=== PATIENT | female | born 1985 ===

== ENCOUNTER 2017-04-28 21:46 | Emergency (ER) | payer MEDICAID ==
[~2017-04-28] VITALS: Ht 160 cm; Wt 57.0 kg
[2017-04-28 21:50] VITALS: Ht 160 cm; Wt 57.0 kg
--- NOTE | 2017-04-28 22:52 | ERD ---
ER Documentation Chief Complaint Date/Time DATE: 04/28/17 TIME: 22:40 Chief Complaint 11 wks , vomotong multiple times today HPI 31-year-old female presents emergency department for pelvic pain, lower back pain, vomiting. Stated that she vomited 4-5 times with nonbilious and nonbloody emesis in the past 24 hours. Describes her pelvic pain and lower back pain is crampy, constant, and regular. LMP: 02/11/2017. SAEED 11/18/2017. A0. She does not know her blood type. Her last OB visit was back in March. Denies headache, dizziness, blurry vision, neck pain, shoulder pain, chest pain , constipation, diarrhea, trauma, injury, falls, urinary symptoms, vaginal bleeding, vaginal discharge, recent exposure to any illness, recent antibiotic use in the last 3 months, recent travel, fever, chills. No known drug allergies. No past medical history. No surgeries. Medication: vitamins. Social: Works as a auditor/quality. Denies smoking, use of alcohol, use of illegal drugs. ROS All systems reviewed and are negative except as per history of present illness. Medications Home Meds Active Scripts Metoclopramide* (Reglan*) 10 Mg Tablet, 10 MG PO Q6 Y for NAUSEA AND/OR VOMITING , #20 TAB Prov:BUSHRA KRAUSE 04/29/17 Doxylamine/Pyridoxine Hcl (ZARINA FAUSTIN 10-10 MG TABLET) 1 Each Tablet.dr, 1 TAB PO TID Y for [place]/vomiting in , #10 TAB Prov:BUSHRA KRAUSE 04/29/17 Multivit/Min/Fol Ac/Iron/Pren* ( S*) 1 Tab Tab, 1 TAB PO DAILY, #30 TAB Prov:BUSHRA KRAUSE 04/29/17 Acetaminophen* (Tylenol*) 325 Mg Tablet, 2 TAB PO Q6 Y for PAIN AND OR ELEVATED TEMP, #20 TAB Prov:BUSHRA KRAUSE 04/29/17 Cephalexin* (Keflex*) 500 Mg Capsule, 500 MG PO QID for 5 Days, CAP Prov:PASILABUSHRA CORREA 04/29/17 Allergies Allergies: Coded Allergies: No Known Allergy (Unverified , 04/28/17) PMhx/Soc Medical and Surgical Hx: pt denies Medical Hx, pt denies Surgical Hx Hx Alcohol Use: No Hx Substance Use: No Hx Tobacco Use: No Smoking Status: Never smoker Physical Exam Vitals Vital Signs Date Time Temp Pulse Resp B/P Pulse Ox O2 Delivery O2 Flow Rate FiO2 04/28/17 21:50 97.1 82 20 111/54 99 Physical Exam Const: [] Head: Atraumatic Eyes: Normal Conjunctiva ENT: Normal External Ears, Nose and Mouth. Neck: Full range of motion..~ No meningismus. Resp: Clear to auscultation bilaterally Cardio: Regular rate and rhythm, no murmurs Abd: Soft, non tender, non distended. Normal bowel sounds. There is no right lower abdominal tenderness and light and deep palpation. Skin: No petechiae or rashes Back: No midline or flank tenderness. No CVA tenderness. Ext: No cyanosis, or edema Neur: Awake and alert Psych: Normal Mood and Affect Result Diagram: 04/28/17 2255 04/29/17 0015 Results 24 hrs Laboratory Tests Test 04/28/17 22:55 04/29/17 00:15 White Blood Count 10.410^3/ul Red Blood Count 3.8310^6/ul Hemoglobin 12.4g/dl Hematocrit 35.3% Mean Corpuscular Volume 92.2fl Mean Corpuscular Hemoglobin 32.4pg Mean Corpuscular Hemoglobin Concent 35.1g/dl Red Cell Distribution Width 12.7% Platelet Count 50218^3/UL Mean Platelet Volume 12.6fl Neutrophils % 72.2% Lymphocytes % 16.3% Monocytes % 7.5% Eosinophils % 3.2% Basophils % 0.4% Nucleated Red Blood Cells % 0.0/100WBC Neutrophils # 7.510^3/ul Lymphocytes # 1.710^3/ul Monocytes # 0.810^3/ul Eosinophils # 0.310^3/ul Basophils # 0.010^3/ul Nucleated Red Blood Cells # 0.010^3/ul Urine Color YELLOW Urine Clarity SLIGHTLY CLOUDY Urine pH 7.0 Urine Specific [place] 1.019 Urine Ketones 1+mg/dL Urine Nitrite NEGATIVEmg/dL Urine Bilirubin NEGATIVEmg/dL Urine Urobilinogen 1+mg/dL Urine Leukocyte Esterase 2+Lavon/ul Urine Microscopic RBC 2/HPF Urine Microscopic WBC 2/HPF Urine Squamous Epithelial Cells MANY/HPF Urine Mucus FEW/HPF Urine Hemoglobin NEGATIVEmg/dL Urine Glucose NEGATIVEmg/dL Urine Total Protein NEGATIVEmg/dl Amylase Level 95U/L Lipase 84U/L Beta HCG, Quantitative 544012.0mIU/ml Sodium Level 134mmol/L Potassium Level 3.8mmol/L Chloride Level 104mmol/L Carbon Dioxide Level 25mmol/L Anion Gap 9 Blood Urea Nitrogen 6mg/dl Creatinine 0.54mg/dl Glucose Level 84mg/dl Calcium Level 9.6mg/dl Total Bilirubin 0.4mg/dl Direct Bilirubin 0.00mg/dl Indirect Bilirubin 0.4mg/dl Aspartate Amino Transf (AST/SGOT) 17IU/L Alanine Aminotransferase (ALT/SGPT) 21IU/L Alkaline Phosphatase 67IU/L Total Protein 6.7g/dl Albumin 3.6g/dl Globulin 3.10g/dl Albumin/Globulin Ratio 1.16 Current Medications Medications (Trade) Dose Ordered Sig/Iliana Route PRN Reason Start Time Stop Time Status Last Admin Dose Admin Acetaminophen 500 mg 500 mg ONCE STAT PO 04/29/17 00:12 04/29/17 00:13 DC Sodium Chloride (NS) 1,000 ml @ 1,000 mls/hr Q1H ONCE IV 04/29/17 00:30 04/29/17 01:29 DC Metoclopramide HCl (Reglan) 10 mg ONCE ONCE IV 04/29/17 00:30 04/29/17 00:31 DC Procedures/MDM Examination: Please see physical examination. Disease process, medical treatment was explained to the patient and family member. They verbalized understanding and agreed with the diagnostic tests, medical treatment, and follow-up care. Radiology: OB ultrasound Impression: FINDINGS: A single intrauterine with a pole and yolk sac is identified. The crown-rump length equals 3.3 cm. The estimated gestational age equals 10 weeks 3 days by ultrasound criteria. Normal cardiac activity is identified with a HR of 163 bpm. There is a 1.8 cm subchorionic hemorrhage. There is no free fluid and there are no adnexal masses. Right ovary: 3.0 x 1.0 x 1.6 cm. Normal flow and echogenicity. Left ovary: 2.8 x 1.4 x 2.5 cm. Normal flow and echogenicity IMPRESSION: 1. Single viable intrauterine with an estimated gestational age of 10 weeks 3 days by ultrasound criteria and an estimated date of delivery of 06/2018. 2. Small subchorionic hemorrhage. Short interval follow-up is recommended. Blood works unremarkable: Reviewed. Beta hCG quantitative: 201,120.0. POC urine : Positive. Type and Rh: O Positive. Urinalysis: UTI. Treatment: IV insertion. Normal saline IV bolus. Reglan IV. Re-evaluation: Denies headache, dizziness, blurry vision, neck pain, shoulder pain, chest pain, back pain, abdominal pain, nausea, vomiting. No episode of emesis in the emergency department. Alert and oriented 4. Speaks full and clear sentences. Respirations even and unlabored. Lung sounds clear to auscultation. Active bowel sounds. There is no right upper/right lower/ epigastric/left upper/left lower abdominal tenderness and light and deep palpation. Negative on Rovsings sign. Negative [place] sign. No peritoneal signs. Ambulatory with steady gait. No neurovascular deficits. No neurological deficits. Consultation: None. Differential diagnosis: Ectopic versus abnormal versus hyperemesis gravidarum versus urinary tract infection versus abdominal pain in Medical decision m[age]-year-old female presents emergency department for pelvic pain, lower back pain, vomiting. Stated that she vomited 4-5 times with nonbilious and nonbloody emesis in the past 24 hours. Describes her pelvic pain and lower back pain is crampy, constant, and regular. LMP: 02/11/2017. SAEED 11/18/2017. A0. She does not know her blood type. Her last OB visit was back in March. Patient's complaint, patient's history about her complaint, my physical findings, diagnostic test results, my reevaluation after treatment are consistent with a final diagnosis of urinary tract infection and , abdominal pain and . Medications prescribed are the following: Keflex. Tylenol. Diclegis. Reglan. Patient and family member are made aware of the side effects and adverse reactions of the medications prescribed. Instructed on when to seek emergent and medical attention in case allergic/anaphylactic reactions or severe side effects and or adverse reactions to medications. Patient and family member verbalized understanding. Patient instructed Instructed to follow-up with his PCP in 24-48 hours. Follow-up with OB in the next 24-48 hours. Instructed to Call 911 for chest pain, shortness of breath. Advised to come back here in ED as soon as possible for severity of symptoms which includes but not limited to: any new symptoms; shortness of breath/difficulty of breathing; cardiovascular changes; severe gastrointestinal symptoms; signs and symptoms of bleeding and or infection; signs of compartment syndrome/neurovascular changes; neurological changes/deficits. Patient and family member verbalized understanding. Upon discharge, patient is alert and oriented x 4, speaks full and clear sentences, denies pain, has no neurological deficits, has no neurovascular deficits, difficulty of breathing. Breathing even and unlabored. Lung sounds are clear to auscultation. Not in distress. Appears comfortable. Ambulatory with steady gait. Appears satisfied with care provided here in ED. Departure Diagnosis: Primary Impression: Abdominal pain affecting Additional Impression: UTI in Condition: Stable Additional Instructions: Instructed to follow-up with his PCP in 24-48 hours. Follow-up with OB in the next 24-48 hours. Instructed to Call 911 for chest pain, shortness of breath. Advised to come back here in ED as soon as possible for severity of symptoms which includes but not limited to: any new symptoms; shortness of breath/difficulty of breathing; cardiovascular changes; severe gastrointestinal symptoms; signs and symptoms of bleeding and or infection; signs of compartment syndrome/neurovascular changes; neurological changes/deficits. Patient and family member verbalized understanding. BUSHRA KRAUSE Apr 28, 2017 22:51
[2017-04-28 23:32] LABS: BASOPHILS % 0.4 % (0.0-2.0); EOSINOPHILS # 0.3 10^3/ul (0.0-0.5); EOSINOPHILS % 3.2 % (0.0-7.0); HEMATOCRIT 35.3 % (37.0-47.0); HEMOGLOBIN 12.4 g/dl (12.0-16.0); LYMPHOCYTES # 1.7 10^3/ul (0.8-2.9); LYMPHOCYTES % 16.3 % (15.0-51.0); MEAN CORPUSCULAR HEMOGLOBIN 32.4 pg (29.0-33.0); MEAN CORPUSCULAR HGB CONC 35.1 g/dl (32.0-37.0); MEAN CORPUSCULAR VOLUME 92.2 fl (82.0-101.0); MEAN PLATELET VOLUME 12.6 fl (7.4-10.4); MONOCYTE # 0.8 10^3/ul (0.3-0.9); MONOCYTES % 7.5 % (0.0-11.0); NEUTROPHIL # 7.5 10^3/ul (1.6-7.5); NEUTROPHILS % 72.2 % (39.0-77.0); PLATELET COUNT 147 10^3/UL (140-415); RED BLOOD COUNT 3.83 10^6/ul (4.20-5.40); RED CELL DISTRIBUTION WIDTH 12.7 % (11.5-14.5); WHITE BLOOD COUNT 10.4 10^3/ul (4.8-10.8)
--- NOTE | 2017-04-28 23:35 | RADRPT ---
PROCEDURE: US OB. CLINICAL INDICATION: Vaginal bleeding. TECHNIQUE: Transabdominal sonographic evaluation of the pelvis using bacon scale and color Doppler imaging was performed. COMPARISON: None available. FINDINGS: A single intrauterine with a pole and yolk sac is identified. The crown-rump length equals 3.3 cm. The estimated gestational age equals 10 weeks 3 days by ultrasound criteria. Normal cardiac activity is identified with a HR of 163 bpm. There is a 1.8 cm subchorionic hemorrhage. There is no free fluid and there are no adnexal masses. Right ovary: 3.0 x 1.0 x 1.6 cm. Normal flow and echogenicity. Left ovary: 2.8 x 1.4 x 2.5 cm. Normal flow and echogenicity IMPRESSION: 1. Single viable intrauterine with an estimated gestational age of 10 weeks 3 days by ult rasound criteria and an estimated date of delivery of 11/21/2017. 2. Small subchorionic hemorrhage. Short interval follow-up is recommended. RPTAT: HLBP .Alex Reed MD, Date Time Electronically viewed and signed by .Alex Reed MD, on 04/28/2017 23:35 .P/
[2017-04-28 23:47] LABS: ADD UMIC YES; UR ASCORBIC ACID NEGATIVE (NEGATIVE); UR BILIRUBIN (Dip) NEGATIVE (NEGATIVE); UR BLOOD (Dip) NEGATIVE (NEGATIVE); UR CLARITY SLIGHTLY CLOUDY (CLEAR); UR COLOR YELLOW (YELLOW); UR GLUCOSE (Dip) NEGATIVE (NEGATIVE); UR KETONES (Dip) 1+ mg/dL (NEGATIVE); UR LEUKOCYTE ESTERASE (Dip) 2+ Leu/ul (NEGATIVE); UR MUCUS FEW /HPF (NONE SEEN); UR NITRITE (Dip) NEGATIVE (NEGATIVE); UR RBC 2 /HPF (0-5); UR SPECIFIC GRAVITY (Dip) 1.019 (1.003-1.030); UR SQUAMOUS EPITHELIAL CELL MANY /HPF (FEW); UR TOTAL PROTEIN (Dip) NEGATIVE (NEGATIVE); UR UROBILINOGEN (Dip) 1+ mg/dL (NEGATIVE)
[2017-04-28 23:50] LABS: AMYLASE 95 U/L (11-123)
[2017-04-29] MEDS ORDERED: ACETAMINOPHEN 500 MG TAB PO STA (00:12)
[2017-04-29] MEDS ORDERED: SOD CHLORIDE 0.9% 1,000 ML IV ONE (00:30)
[2017-04-29] MEDS ORDERED: METOCLOPRAMIDE 10 MG INJ IV ONE (00:30)
[2017-04-29 00:41] LABS: ALBUMIN 3.6 g/dl (3.3-4.9); ALBUMIN/GLOBULIN RATIO 1.16; BILIRUBIN,INDIRECT 0.4 mg/dl (0-1.1); BILIRUBIN,TOTAL 0.4 mg/dl (0.2-1.3); CALCIUM 9.6 mg/dl (8.4-10.2); CREATININE 0.54 mg/dl (0.44-1.00); POTASSIUM 3.8 mmol/L (3.5-5.1); TOTAL PROTEIN 6.7 g/dl (6.1-8.1)
[2017-04-29] MEDS ORDERED: CEPH-443 PO (01:42)
[2017-04-29] MEDS ORDERED: ACET325T33 PO (01:43)
[2017-04-29] MEDS ORDERED: PRENAT PO (01:43)
[2017-04-29] MEDS ORDERED: DOXY1TAB3 PO (01:45)
[2017-04-29] MEDS ORDERED: METO10TA92 PO (01:49)
[2017-04-29 03:24] VITALS: BP 115/62; PULSE 72; RESP 16; TEMP 98.3
== END 2017-04-29 03:28 | disposition home or self-care (01) ==
LOC: FTE 21:46
DX: O26.891 Other specified pregnancy related conditions, first trimester (principal); R10.2 Pelvic and perineal pain; O23.41 Unspecified infection of urinary tract in pregnancy, first trimester; Z3A.10 10 weeks gestation of pregnancy
CPT/HCPCS: 36415; 76801; 80053; 81001; 82150; 83690; 84702; 85025; 86900; 86901; 87086; 96361; 96374; J2765; J7030; Z7502; Z7610

== ENCOUNTER 2017-06-27 10:39 | Inpatient (IN) | payer MEDICAID ==
[~2017-06-27] VITALS: Ht 157.5 cm; Wt 57.9 kg
[~2017-06-27 10:39] MED LIST: ACET325T33 PO; CEPH-443 PO; DOXY1TAB3 PO; METO10TA92 PO; PRENAT PO
[2017-06-27] MEDS ORDERED: ACETAMINOPHEN 500 MG TAB PO STA (12:53)
--- NOTE | 2017-06-27 13:00 | ERD ---
ER Documentation Chief Complaint Chief Complaint VAGINAL BLEEDING WITH CRAMPING 19WKS HPI 31-year-old female presents emergency department for vaginal bleeding with pelvic cramping since last night. LMP: 01/12/2017. SAEED 11/18/2017. A0. Denies headache, dizziness, blurred vision, neck pain, shoulder pain, chest pain , back pain, abdominal pain, nausea, vomiting, loss of bowel bladder control, vaginal discharge, fever, chills, difficulty walking, trauma, injury, falls, numbness or tingling sensation. No known drug allergies. No past medical history. No surgical history. Medication: vitamins. Social: Denies smoking, use of alcoholic beverages, use of illegal drugs. ROS All systems reviewed and are negative except as per history of present illness. Medications Home Meds Active Scripts Metoclopramide* (Reglan*) 10 Mg Tablet, 10 MG PO Q6 Y for NAUSEA AND/OR VOMITING , #20 TAB Prov:NELIDAKATELYNSUJEY F 04/29/17 Doxylamine/Pyridoxine Hcl (ZARINA FAUSTIN 10-10 MG TABLET) 1 Each Tablet.dr, 1 TAB PO TID Y for [place]/vomiting in , #10 TAB Prov:PORFIRIOABIMAELBUSHRA F 04/29/17 Multivit/Min/Fol Ac/Iron/Pren* ( S*) 1 Tab Tab, 1 TAB PO DAILY, #30 TAB Prov:EDUARDOSUNNYKATELYNSUJEY F 04/29/17 Acetaminophen* (Tylenol*) 325 Mg Tablet, 2 TAB PO Q6 Y for PAIN AND OR ELEVATED TEMP, #20 TAB Prov:PORFIRIOBUSHRA VARGHESE F 04/29/17 Cephalexin* (Keflex*) 500 Mg Capsule, 500 MG PO QID for 5 Days, CAP Prov:PORFIRIOILABANKATELYNSUJEY F 04/29/17 Allergies Allergies: Coded Allergies: No Known Allergy (Unverified , 04/28/17) PMhx/Soc Medical and Surgical Hx: pt denies Medical Hx, pt denies Surgical Hx Hx Alcohol Use: No Hx Substance Use: No Hx Tobacco Use: No Smoking Status: Never smoker Physical Exam Vitals Vital Signs Date Time Temp Pulse Resp B/P Pulse Ox O2 Delivery O2 Flow Rate FiO2 06/27/17 10:45 97.0 87 16 103/55 99 Physical Exam Const: [] Head: Atraumatic Eyes: Normal Conjunctiva ENT: Normal External Ears, Nose and Mouth. Neck: Full range of motion..~ No meningismus. Resp: Clear to auscultation bilaterally Cardio: Regular rate and rhythm, no murmurs Abd: Soft, non tender, non distended. Normal bowel sounds Skin: No petechiae or rashes Back: No midline or flank tenderness Ext: No cyanosis, or edema Neur: Awake and alert Psych: Normal Mood and Affect Result Diagram: 06/27/17 1328 06/27/17 1328 Results 24 hrs Laboratory Tests Test 06/27/17 13:28 White Blood Count 11.110^3/ul Red Blood Count 3.6210^6/ul Hemoglobin 11.8g/dl Hematocrit 34.6% Mean Corpuscular Volume 95.6fl Mean Corpuscular Hemoglobin 32.6pg Mean Corpuscular Hemoglobin Concent 34.1g/dl Red Cell Distribution Width 13.5% Platelet Count 85326^3/UL Mean Platelet Volume 12.7fl Neutrophils % 73.6% Lymphocytes % 17.5% Monocytes % 6.6% Eosinophils % 1.4% Basophils % 0.2% Nucleated Red Blood Cells % 0.0/100WBC Neutrophils # 8.210^3/ul Lymphocytes # 1.910^3/ul Monocytes # 0.710^3/ul Eosinophils # 0.210^3/ul Basophils # 0.010^3/ul Nucleated Red Blood Cells # 0.010^3/ul Urine Color YELLOW Urine Clarity SLIGHTLY CLOUDY Urine pH 7.0 Urine Specific [place] 1.013 Urine Ketones NEGATIVEmg/dL Urine Nitrite NEGATIVEmg/dL Urine Bilirubin NEGATIVEmg/dL Urine Urobilinogen NEGATIVEmg/dL Urine Leukocyte Esterase 3+Lavon/ul Urine Microscopic RBC 1/HPF Urine Microscopic WBC 31/HPF Urine Squamous Epithelial Cells MODERATE/HPF Urine Bacteria FEW/HPF Urine Mucus FEW/HPF Urine Hemoglobin NEGATIVEmg/dL Urine Glucose NEGATIVEmg/dL Urine Total Protein NEGATIVEmg/dl Sodium Level 138mmol/L Potassium Level 4.0mmol/L Chloride Level 106mmol/L Carbon Dioxide Level 23mmol/L Anion Gap 13 Blood Urea Nitrogen 4mg/dl Creatinine 0.50mg/dl Glucose Level 76mg/dl Calcium Level 8.7mg/dl Total Bilirubin 0.3mg/dl Direct Bilirubin 0.00mg/dl Indirect Bilirubin 0.3mg/dl Aspartate Amino Transf (AST/SGOT) 19IU/L Alanine Aminotransferase (ALT/SGPT) 24IU/L Alkaline Phosphatase 63IU/L Total Protein 6.9g/dl Albumin 3.7g/dl Globulin 3.20g/dl Albumin/Globulin Ratio 1.15 Amylase Level 92U/L Lipase 70U/L Beta HCG, Quantitative 92399.0mIU/ml Current Medications Medications (Trade) Dose Ordered Sig/Iliana Route PRN Reason Start Time Stop Time Status Last Admin Dose Admin Acetaminophen 500 mg 500 mg ONCE STAT PO 06/27/17 12:53 06/27/17 12:57 DC 06/27/17 14:16 Sodium Chloride (NS) 1,000 ml @ 80 mls/hr [id number] IV 06/27/17 15:20 06/28/17 03:49 Ondansetron HCl (Zofran Inj) 4 mg BRIDGE ORDER PRN IV NAUSEA AND/OR VOMITING 06/27/17 15:30 06/28/17 15:29 Acetaminophen (Tylenol Tab) 650 mg ER BRIDGE PRN PO MILD PAIN/FEVER 06/27/17 15:30 06/28/17 15:29 Procedures/MDM 31-year-old female presents emergency department for vaginal bleeding with pelvic cramping since last night. LMP: 01/12/2017. SAEED 11/18/2017. A0. Denies headache, dizziness, blurred vision, neck pain, shoulder pain, chest pain , back pain, abdominal pain, nausea, vomiting, loss of bowel bladder control, vaginal discharge, fever, chills, difficulty walking, trauma, injury, falls, numbness or tingling sensation. No known drug allergies. No past medical history. No surgical history. Medication: vitamins. Social: Denies smoking, use of alcoholic beverages, use of illegal drugs. Physical exam: Lung sounds are clear to auscultation. No CVA tenderness. Patient agreed with the diagnostic test, treatment, plan of care. Blood works: Reviewed. Type and Rh: Beta hCG quantitative: Reviewed. OB ultrasound: Single viable intrauterine gestation of approximately 18 weeks and 4 days based on ultrasound measurements. Posterior placenta with small area of placental abruption. Differential diagnosis: Placenta previa versus abruptio placenta versus versus vaginal bleeding and Final diagnosis: Abruptio placenta Patient's OB is Dr. Didi Ortiz. Informed the director of community life that to page OB 14:40. Spoke with Dr. Didi Harris, agreed with medical decision making to admit the patient to N. is/OB with a final diagnosis of abruption placenta. She also stated to order Ancef 2 g IV every 8 hours, IV D5 LR at 1 35 cc an hour. Order bathroom privileges and bedrest. Blood works in the morning. She also stated to have the laborist do a pelvic exam when patient gets into the OB/[facility] unit. Called laborist and informed her to do a pelvic exam when the patient gets to the OB unit. Case was discussed with supervising physician, Dr. Sharon Blue who agreed with my medical decision making. Departure Diagnosis: Primary Impression: Abruptio placenta Condition: Stable BUSHRA KRAUSE Jun 27, 2017 13:00
[2017-06-27 13:39] LABS: BASOPHILS % 0.2 % (0.0-2.0); EOSINOPHILS # 0.2 10^3/ul (0.0-0.5); EOSINOPHILS % 1.4 % (0.0-7.0); HEMATOCRIT 34.6 % (37.0-47.0); HEMOGLOBIN 11.8 g/dl (12.0-16.0); LYMPHOCYTES # 1.9 10^3/ul (0.8-2.9); LYMPHOCYTES % 17.5 % (15.0-51.0); MEAN CORPUSCULAR HEMOGLOBIN 32.6 pg (29.0-33.0); MEAN CORPUSCULAR HGB CONC 34.1 g/dl (32.0-37.0); MEAN CORPUSCULAR VOLUME 95.6 fl (82.0-101.0); MEAN PLATELET VOLUME 12.7 fl (7.4-10.4); MONOCYTE # 0.7 10^3/ul (0.3-0.9); MONOCYTES % 6.6 % (0.0-11.0); NEUTROPHIL # 8.2 10^3/ul (1.6-7.5); NEUTROPHILS % 73.6 % (39.0-77.0); PLATELET COUNT 128 10^3/UL (140-415); RED BLOOD COUNT 3.62 10^6/ul (4.20-5.40); RED CELL DISTRIBUTION WIDTH 13.5 % (11.5-14.5); WHITE BLOOD COUNT 11.1 10^3/ul (4.8-10.8)
[2017-06-27 13:44] LABS: ADD UMIC YES; UR ASCORBIC ACID NEGATIVE (NEGATIVE); UR BACTERIA FEW /HPF (NONE SEEN); UR BILIRUBIN (Dip) NEGATIVE (NEGATIVE); UR BLOOD (Dip) NEGATIVE (NEGATIVE); UR CLARITY SLIGHTLY CLOUDY (CLEAR); UR COLOR YELLOW (YELLOW); UR GLUCOSE (Dip) NEGATIVE (NEGATIVE); UR KETONES (Dip) NEGATIVE (NEGATIVE); UR LEUKOCYTE ESTERASE (Dip) 3+ Leu/ul (NEGATIVE); UR MUCUS FEW /HPF (NONE SEEN); UR NITRITE (Dip) NEGATIVE (NEGATIVE); UR RBC 1 /HPF (0-5); UR SPECIFIC GRAVITY (Dip) 1.013 (1.003-1.030); UR SQUAMOUS EPITHELIAL CELL MODERATE /HPF (FEW); UR TOTAL PROTEIN (Dip) NEGATIVE (NEGATIVE); UR UROBILINOGEN (Dip) NEGATIVE (NEGATIVE)
--- NOTE | 2017-06-27 14:02 | RADRPT ---
PROCEDURE: US OB. CLINICAL INDICATION: Pelvic pain, vaginal bleeding TECHNIQUE: Multiple sonographic images of the pelvis and gravid uterus were obtained. The images were reviewed on a PACS workstation. COMPARISON: US PELVIS 04/28/2017 FINDINGS: There is a single viable intrauterine gestation. Cardiac activity is present with 134 beats per min algaaciq. There is a breech presentation. The placenta is posterior. There is no evidence of placenta previa. There is a small anechoic areas seen posterior to the placenta, measuring approximately 1.5 cm, suspicious for a small area of place ntal abruption. MVP = 3.2 cm. Measurements were made in order to determine age. The results are as follows: BPD =4.2 cm HC =15.7 cm AC =14.2 cm FL =2.5 cm Estimated gestational age of approximately 18 weeks and 4 days based on ultrasound measurements. Clinical age: 19 weeks and 3 days. The estimated date of delivery is 11/24/17, based on ultrasound measurements. The EFW = 249 g, 11%, based on LMP age. RPTAT: AA IMPRESSION: Single viable intrauterine gestation of approximately 18 weeks and 4 days based on ultrasound measu rements. Posterior placenta with a small area of placental abruption. .Rafael Concepcion MD, MD Date Time Electronically viewed and signed by .Rafael Concepcion MD, MD on 06/27/2017 14:02 .S/
[2017-06-27 14:05] LABS: ALBUMIN 3.7 g/dl (3.3-4.9); ALBUMIN/GLOBULIN RATIO 1.15; BILIRUBIN,INDIRECT 0.3 mg/dl (0-1.1); BILIRUBIN,TOTAL 0.3 mg/dl (0.2-1.3); CALCIUM 8.7 mg/dl (8.4-10.2); CREATININE 0.5 mg/dl (0.44-1.00); TOTAL PROTEIN 6.9 g/dl (6.1-8.1)
[2017-06-27] MEDS ORDERED: SOD CHLORIDE 0.9% 1,000 ML IV SCH (15:20)
[2017-06-27 15:30] VITALS: TEMP 98
[2017-06-27] MEDS ORDERED: CEFAZOLIN 2 GM/50 ML (PMX) 50 ML IVPB ONE (15:30)
[2017-06-27] MEDS ORDERED: ACETAMINOPHEN 325 MG TAB PO PRN (15:30)
[2017-06-27] MEDS ORDERED: ONDANSETRON 4 MG INJ IV PRN (15:30)
[2017-06-27] MEDS ORDERED: LIDOCAINE 1% (MDV) 20 ML INJ ONE (15:51)
[2017-06-27] MEDS: DEXTROSE 5%-LR 1,000 ML IV SCH (16:07)
--- NOTE | 2017-06-27 16:11 | EN ---
Date/Time of Note Date/Time of Note DATE: 06/27/17 TIME: 16:11 ER Progress Note I was notified by physician ice cream freezer assistant that this patient had been admitted. The patient was admitted for placental abruption. I have evaluated this patient and the patient is hemodynamically stable. Acid Blower has already been contacted by physician ice cream freezer assistant prior to my evaluation. I do agree with the disposition of admission at this time. Admission orders have been placed on the patient for the OB floor. SARA DOTSON DO Jun 27, 2017 16:11
[2017-06-27 20:14] VITALS: PULSE 73
[2017-06-27 23:29] VITALS: Ht 157.5 cm; Wt 57.9 kg
[2017-06-27 23:30] VITALS: BP 96/57; RESP 16
[2017-06-28] MEDS ORDERED: ACETAMINOPHEN 325 MG TAB PO PRN
[2017-06-28] MEDS: CEFAZOLIN 2 GM/50 ML (PMX) 50 ML IVPB SCH ×2 (00:51→09:01)
[2017-06-28] MEDS: DEXTROSE 5%-LR 1,000 ML IV SCH ×2 (02:44→10:40)
--- NOTE | 2017-06-28 06:27 | HP ---
Date/Time of Note Date/Time of Note DATE: 06/28/17 TIME: 06:23 OB - History Hx of Present Free Text/Dictation June 27, 2017 : 4 Para: 3 Care: Good Care Ultrasounds: No ultrasounds Abnormal Ultrasound Findings: 1/2 cm placenta abruption noted in ultrasound today when presented with a complaint of vaginal bleeding and pelvic pressure symptoms Other Concerns: 31-year-old with IUP at 19 weeks and 3 days presented with complaint of pelvic pressure symptoms and vaginal bleeding intermittently since last night. Bleeding stopped and recurred again today. She was noted to have 1/2 cm placenta abruption and ultrasound done today in the emergency room. Patient was admitted by primary attending to OB floor for observation. Patient currently denies any pelvic pain, leaking of fluid. Denies any other complaints. Past Family/Social History * Past Medical, Surgical, Family and Obstetric Histories reviewed from chart. OB Admission Exam Vital Signs Vital Signs Vital Signs Date Time Temp Pulse Resp B/P Pulse Ox O2 Delivery O2 Flow Rate FiO2 06/27/17 23:30 98.3 16 96/57 Room Air 06/27/17 20:14 73 98 Physical Exam HEENT: WNL Heart: Rhythm Normal Lungs: Clear Abdomen: WNL Extremities: Normal Cervical Dilatation: None (Speculum examination done. Cervix appears to be closed and long. Scant amount of blood in the vault. No leaking of fluid from the cervix noted.) Amniotic Fluid: Clear Heart Rate: 130's Contractions on Admission: None Last 72 hours Lab Results CBC & BMP 06/27/17 13:28 Liver Function Test 06/27/17 13:28 Alanine Aminotransferase (ALT/SGPT) 24 Albumin 3.7 Alkaline Phosphatase 63 Aspartate Amino Transf (AST/SGOT) 19 Direct Bilirubin 0.00 Total Protein 6.9 Magnesium Level Test 06/27/17 13:28 Magnesium Level 1.9 OB Assessment/Plan Other Assessment: IUP at 19 weeks and 3 days Vaginal bleeding and cramping Ultrasound finding consistent with placental abruption, 1 and half centimeter blood clots noted in ultrasound examination Rh+ is previable Patient will be kept for observation per primary OB request Will be seen tomorrow by OB attending Bedrest discussed the patient Explained risk of loss or IUFD in case of expansion of abruption Understands that currently is previable Possibly discharge home tomorrow if remains stable with pelvic rest and modified bedrest at home and follow-up with OB attending as outpatient patient verbalized understanding TRAVIS MERINO MD Jun 28, 2017 06:27
[2017-06-28 06:29] LABS: WHITE BLOOD COUNT 8.1 10^3/ul (4.8-10.8)
[2017-06-28 06:30] LABS: ABNORMAL IP MESSAGE 1; BASOPHILS % 0.1 % (0.0-2.0); EOSINOPHILS # 0.2 10^3/ul (0.0-0.5); HEMATOCRIT 30.6 % (37.0-47.0); HEMOGLOBIN 10.5 g/dl (12.0-16.0); LYMPHOCYTES # 1.3 10^3/ul (0.8-2.9); LYMPHOCYTES % 16.4 % (15.0-51.0); MEAN CORPUSCULAR HEMOGLOBIN 32.7 pg (29.0-33.0); MEAN CORPUSCULAR HGB CONC 34.3 g/dl (32.0-37.0); MEAN CORPUSCULAR VOLUME 95.3 fl (82.0-101.0); MEAN PLATELET VOLUME 13.4 fl (7.4-10.4); MONOCYTE # 0.6 10^3/ul (0.3-0.9); NEUTROPHILS % 73.6 % (39.0-77.0); PLATELET COUNT 118 10^3/UL (140-415); RED BLOOD COUNT 3.21 10^6/ul (4.20-5.40); RED CELL DISTRIBUTION WIDTH 13.4 % (11.5-14.5)
[2017-06-28 06:43] LABS: POSITIVE DIFF @See below
[2017-06-28 07:09] LABS: ALBUMIN 2.8 g/dl (3.3-4.9); ALBUMIN/GLOBULIN RATIO 1.03; BILIRUBIN,INDIRECT 0.2 mg/dl (0-1.1); BILIRUBIN,TOTAL 0.2 mg/dl (0.2-1.3); CALCIUM 8.3 mg/dl (8.4-10.2); CREATININE 0.56 mg/dl (0.44-1.00); POTASSIUM 3.6 mmol/L (3.5-5.1); TOTAL PROTEIN 5.5 g/dl (6.1-8.1)
--- NOTE | 2017-06-28 13:24 | RADRPT ---
PROCEDURE: US OB AND ULTRASOUND CERVIX. CLINICAL INDICATION: Pelvic pain, vaginal bleeding TECHNIQUE: Multiple sonographic images of the pelvis and gravid uterus were obtained. The images were reviewed on a PACS workstation. Transvaginal images of the cervix were also obtained. COMPARISON: US 06/27/2017 FINDINGS: The cervix has a length of 3.6 cm. There is a single viable intrauterine gestation. Cardiac activity is present with 148 beats per min bhupendra. There is a vertex presentation. The placenta is posterior. There is no evidence for placenta previa. There is a tiny 8 mm hypoechoic area seen posterior to the placenta, suspicious for an area of abrup tion. MVP = 4.9 cm. Measurements were made in order to determine age. The results are as follows: BPD =4.3 cm HC =15.7 cm AC =13.5 cm FL =2.7 cm Estimated gestational age of approximately 18 weeks and 5 days based on ultrasound measurements. Clinical age: 19 weeks and 4 days. The estimated date of delivery is 11/24/17, based on ultrasound measurements. The EFW = 249 g, 7.7%, based on LMP age. RPTAT: AA IMPRESSION: Single viable intrauterine gestation of approximately 18 weeks and 5 days based on ultrasound measu rements. Posterior placenta with a possible tiny area of abruption, decreased when compared to the prior stud y. .Rafael Concepcion MD, MD Date Time Electronically viewed and signed by .Rafael Concepcion MD, MD on 06/28/2017 13:24 .S/
--- NOTE | 2017-06-28 20:59 | PD.PPDC ---
J[employer]IOR [employer] Discharge Instruction Condition Patient Condition: Fair Diet Diet: Resume Regular Diet Activity/Restrictions Activity: Bedrest May be up to bathroom May be up for meals May Shower Restrictions: No Exercising No Lifting No Driving No Sexual Activity Nothing in the Vagina No [place] No Tampons, douche Follow-up Follow-up with Physician: 3, Week/Weeks JANAE PATEL MD Jun 28, 2017 20:59
--- NOTE | 2017-06-28 22:41 | DS ---
DATE OF ADMISSION: 06/27/2017 DATE OF DISCHARGE: 06/28/2017 ADMITTING DIAGNOSIS: A 19-week and 3-day with small placental abruption. PROCEDURES: Consultation, bedrest, evaluation, observation and discharged home for bedrest. HISTORY OF PRESENT ILLNESS: This is a 31-year-old female 4, para 3, with an intrauterine pr egnancy at 19 weeks and 3 days. This patient had called in due to some vaginal bleeding. The patie nt was seen in the ER, and an ultrasound revealed that she had a small abruption of the placenta. S he stated she was lifting and doing some physical work at home and after a while she started seeing some bleeding. The patient otherwise had no other problems. She had been treated for a UTI recentl y. The patient was kept in bedrest and a history of possible ITP was obtained from her since the fi ndings on the blood tests showed that the platelets were low. The possibility of an ITP was discuss ed with the patient, that she needs to see a director special education. She stated she had low platelets in the last and she was told about that. She never had a history of any other bleeding problems. At this time, she has no complaints. She has been given IV fluids and IV antibiotics, and she sta mario she was having some cramps yesterday when she came but they subsided. At this time, a repeat ul trasound was done and the examination on the ultrasound revealed that the abruption is a little bit smaller right now. A consultation with Dr. Anderson. She advises to send her home on bedrest if there are no changes in the cervix of dilatation, effacement or labor. To be resting at home and to comp lete a full week of antibiotic treatment. The patient was re-evaluated tonight with no changes in h er cervix. There was no bleeding on my glove. The cervix was long and posterior and noneffaced and nondilated. The patient had no pain, and she has been sent home on bedrest and on Keflex 500 mg t. i.d. for a week, Terazol 7 in case she needs it and Colace for constipation p.r.n. She was to see portillo poe in the office and to see for followup on an ultrasound of the baby. She is stable and i n good condition at the time of discharge. Dictated By: JANAE SOLANO/DAVE Conf#: [id number] DID#: [id number] CC: JANAE PATEL MD;*EndCC*
--- NOTE | 2017-06-29 04:37 | CONS ---
DATE OF ADMISSION: 06/27/2017 DATE OF CONSULTATION: 06/28/2017 HISTORY OF PRESENT ILLNESS: The patient is a 31-year-old G4, P3 at 9 weeks and 5 days, who presente d with vaginal bleeding. She started spotting on Sunday morning. After that, it stopped; however, on morning, she experienced vaginal bleeding when she was at work. She states she had short intercourse on Sunday. Also, prior to heavy vaginal bleeding she was picki ng up some heavy boxes. Since admission to the hospital, she has not had any vaginal bleeding. However, she is on strict be d rest, so I am not sure how much validity should be given to absence of any vaginal bleeding. Her history is negative except for contractions with the last , but full term delivery. VITAL SIGNS: Stable. PHYSICAL EXAM: Deferred. heart tones. IMPRESSION: Intrauterine at 19 weeks and 5 days with vaginal bleeding. Cervical exam has not been checked. Currently, asymptomatic. Her platelets initially were 128,000 and repeated 118,000. She denied any history of platelet dysfu nction; however, she had stated to Dr. Ortiz that in the past she had low platelets with the preg dana. RECOMMENDATIONS: Please have the patient go to the bathroom. If there is no evidence of heavy blee ding, she can be discharged home with bleeding precautions and pelvic rest. Please check the cervix. If the cervix is open, please consult me for further planning. If the cer vix is closed without any bleeding, she can be discharged home with instruction as previously given. Dictated By: AYE DREW/DAVE Conf#: [id number] DID#: [id number]
== END 2017-06-28 21:45 | disposition home or self-care (01) | DRG 782 ==
LOC: FTE 10:39 → OBG 15:21
PROVIDERS: ADMIT Obstetrics & Gynecology; ATTEND Obstetrics & Gynecology
DX: O45.92 Premature separation of placenta, unspecified, second trimester (principal); Z3A.19 19 weeks gestation of pregnancy
CPT/HCPCS: 76805; 76817; 80053; 81001; 82150; 83690; 83735; 84702; 85025; 86703; 86706; 86803; 86900; 86901; 87081; 87086; 87340; J0690; J7030; J7121